=== PATIENT | female | born 1955 | race Caucasian/White ===

== ENCOUNTER 2018-02-16 08:30 | Emergency (ER) | payer BC ==
[~2018-02-16] VITALS: Ht 180.3 cm; Wt 136.1 kg
[~2018-02-16 08:30] MED LIST: ACET325 PO; HYDR1TAB94 PO; ONDA4ODT SL
[2018-02-16] MEDS ORDERED: HYDR1TAB94 PO (10:15)
[2018-02-16] MEDS ORDERED: Colace100 MG PO (10:15)
[2018-02-16] MEDS ORDERED: CYCL10 PO (10:15)
== END 2018-02-16 10:31 | disposition home or self-care (01) ==
LOC: ER 08:30
DX: S39.012A Strain of muscle, fascia and tendon of lower back, initial encounter (principal); X58.XXXA Exposure to other specified factors, initial encounter
CPT/HCPCS: 99283; J1885